=== PATIENT | male | born 1940 | race African-American/Black ===

== ENCOUNTER 2017-03-30 14:17 | Inpatient (IN) | payer OTHER, MEDICAID ==
[~2017-03-30] VITALS: Ht 182.9 cm; Wt 90.7 kg
[~2017-03-30 14:17] MED LIST: AMARYL4 MG ORAL; ASPIR 8181 MG ORAL; ATORVASTATIN CA40 MG ORAL; LISINOPRIL10 MG ORAL; METFORMIN HCL500 M1 ORAL
--- NOTE | 2017-03-30 14:49 | Emergency Room Report ---
History of Present Illness General Chief Complaint: Syncope Source: Patient, Medical Record, EMS Present Illness HPI 76-year-old male, coming from shelter, with pmhx of CAD with 1 stent, hypertension, chronic kidney disease, dementia p/w syncopal episode. Patient has dementia and does not recall any of the events, and is currently confused, history is obtained by EMS at bedside Syncopal episode occurred she was sitting down, slumped onto chair, staff came to him and he was not responsive for a few seconds and then woke up, patient was reportedly at his baseline which was still confused. There was no reported seizure-like activity. Patient did not fall. Currently patient is only stating "I do not know why I'm here". Denying any headache, neck pain, chest pain shortness of breath abdominal pain Allergies: Coded Allergies: PENICILLINS (Verified Allergy, Severe, RASH, HIVES, 01/18/13) Patient History Past Medical History: see triage record Past Surgical History: none Pertinent Family History: none Reviewed Nursing Documentation: PMH: Agreed, PSxH: Agreed Nursing Documentation-PMH Hx Hypertension: Yes Hx COPD: Yes - Hx Diabetes: Yes Hx Cancer: Yes - Lung Hx Gastrointestinal Problems: Yes Hx Neurological Problems: Yes Hx Cerebrovascular Accident: Yes - MINI STROKE Hx Transient Ischemic Attacks: Yes Hx Numbness: Yes - BILATERAL FEET; RIGHT HAND Hx Weakness: Yes Review of Systems All Other Systems: negative except mentioned in HPI Physical Exam Vital Signs Date Time Temp Pulse Resp B/P (MAP) Pulse Ox O2 Delivery O2 Flow Rate FiO2 03/30/17 14:08 52 16 130/70 98 Room Air Sp02 EP Interpretation: reviewed, normal General Appearance: well appearing, no apparent distress, alert, non-toxic, other - confused but cooperative Head: normocephalic, atraumatic Eyes: bilateral eye normal inspection, bilateral eye PERRL, bilateral eye EOMI ENT: normal ENT inspection, normal pharynx, normal voice, moist mucus membranes Neck: normal inspection, full range of motion, supple Respiratory: normal inspection, lungs clear, normal breath sounds, no respiratory distress, no retraction, no wheezing, speaking full sentences, chest symmetrical Cardiovascular #1: normal inspection, regular rate, rhythm, normal capillary refill Cardiovascular #2: 2+ radial (R), 2+ radial (L) Gastrointestinal: normal inspection, non tender, soft, non-distended, no guarding Genitourinary: no CVA tenderness Musculoskeletal: normal inspection, back normal, normal range of motion, non- tender Neurologic: alert, 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 Psychiatric: other - +dementia Skin: normal inspection, normal color, no rash, warm/dry, well hydrated, normal turgor Medical Decision Making Diagnostic Impression: Primary Impression: Syncope ER Course 76-year-old male with syncopal episode DDX: Vasovagal vs. orthostatic / hypovolemic/dehydration vs. cardiac arrhythmia (SVT , Afib) vs. cardiac (, ACS) vs. PE vs. metabolic (hypoglycemia, hypoxia), vs neuro (seizure, CVA, intracranial bleed) Plan: bgm, cbc, bmp, ekg, cxr WILL HOLD CT HEAD AT THIS TIME, THERE IS NO HISTORY OF HEAD TRAUMA, AND PATIENT IS OTHERWISE NEUROLOGICALLY INTACT WITH THE EXCEPTION OF HIS DEMENTIA AT THIS TIME ER course: Patient has remained stable during ED stay. No further syncopal episodes Disposition: Patient requires admission to observation telemetry. D/W hospitalist Dr Olmedo who has accepted pt for admission Please note that this Emergency Department Report was dictated using Health: [employer] technology software, occasionally this can lead to erroneous entry secondary to interpretation by the dictation equipment EKG Diagnostic Results EP Interpretation: Yes Rate: bradycardia Rhythm: NSR ST Segments: No acute changes, no WPW, Brugada, QT prolongation ASA given to patient: No Rhythm Strip EP Interpretation: Yes Rate: 57 Rhythm: NSR, no PVCs, no ectopy Chest X-ray CXR: Ordered: Yes 1 view Indication: Syncope EP interpretation: Yes Interpretation: No consolidation, no effusion, no PTX, no acute cardiopulmonary disease Impression: No acute disease Electronically signed by Antione Augustine MD Laboratory Tests Test 03/30/17 16:45 White Blood Count 9.3 K/UL (4.8-10.8) Red Blood Count 5.20 M/UL (4.70-6.10) Hemoglobin 13.0 G/DL (14.2-18.0) L Hematocrit 44.6 % (42.0-52.0) Mean Corpuscular Volume 86 FL (80-99) Mean Corpuscular Hemoglobin 24.9 PG (27.0-31.0) L Mean Corpuscular Hemoglobin Concent 29.1 G/DL (32.0-36.0) L Red Cell Distribution Width 13.2 % (11.6-14.8) Platelet Count 390 K/UL (150-450) Mean Platelet Volume 7.2 FL (6.5-10.1) Neutrophils (%) (Auto) 71.7 % (45.0-75.0) Lymphocytes (%) (Auto) 18.2 % (20.0-45.0) L Monocytes (%) (Auto) 7.3 % (1.0-10.0) Eosinophils (%) (Auto) 1.3 % (0.0-3.0) Basophils (%) (Auto) 1.5 % (0.0-2.0) Sodium Level 140 MMOL/L (136-145) Potassium Level 4.4 MMOL/L (3.5-5.1) Chloride Level 103 MMOL/L (98-107) Carbon Dioxide Level 27 MMOL/L (21-32) Anion Gap 10 mmol/L (5-15) Blood Urea Nitrogen 18 mg/dL (7-18) Creatinine 1.3 MG/DL (0.55-1.30) Estimate Glomerular Filtration Rate mL/min (>60) Glucose Level 185 MG/DL (74-106) H Calcium Level 9.6 MG/DL (8.5-10.1) Total Bilirubin 0.3 MG/DL (0.2-1.0) Aspartate Amino Transferase (AST) 18 U/L (15-37) Alanine Aminotransferase (ALT) 18 U/L (12-78) Alkaline Phosphatase 84 U/L (46-116) Troponin I 0.000 ng/mL (0.000-0.056) Pro-B-Type Natriuretic Peptide 243 pg/mL (0-125) H Total Protein 7.9 G/DL (6.4-8.2) Albumin 3.5 G/DL (3.4-5.0) Globulin 4.4 g/dL Albumin/Globulin Ratio 0.8 (1.0-2.7) L Last Vital Signs Date Time Temp Pulse Resp B/P (MAP) Pulse Ox O2 Delivery O2 Flow Rate FiO2 03/30/17 14:08 52 16 130/70 98 Room Air Disposition: PLACE IN OBSERVATION Condition: Serious Antione Augustine M.D. Mar 30, 2017 14:49
[2017-03-30 17:00] LABS: BASOPHILS % (AUTO) 1.5 % (0.0-2.0); EOSINOPHILS % (AUTO) 1.3 % (0.0-3.0); LYMPHOCYTES % (AUTO) 18.2 % (20.0-45.0); MEAN CORPUSCULAR HEMOGLOBIN 24.9 PG (27.0-31.0); MEAN CORPUSCULAR HGB CONC 29.1 G/DL (32.0-36.0); MEAN CORPUSCULAR VOLUME 86 FL (80-99); MEAN PLATELET VOLUME 7.2 FL (6.5-10.1); MONOCYTES % (AUTO) 7.3 % (1.0-10.0); NEUTROPHILS % (AUTO) 71.7 % (45.0-75.0); PLATELET COUNT 390 K/UL (150-450); RED CELL DISTRIBUTION WIDTH 13.2 % (11.6-14.8); WHITE BLOOD COUNT 9.3 K/UL (4.8-10.8)
[2017-03-30 17:10] LABS: ANION GAP 10 mmol/L (5-15); CALCIUM 9.6 MG/DL (8.5-10.1); CARBON DIOXIDE 27 MMOL/L (21-32); CHLORIDE 103 MMOL/L (98-107); CREATININE 1.3 MG/DL (0.55-1.30); POTASSIUM 4.4 MMOL/L (3.5-5.1); SODIUM 140 MMOL/L (136-145)
[2017-03-30 17:15] VITALS: BP 138/96
[2017-03-30 17:44] LABS: ALANINE AMINOTRANSFERASE 18 U/L (12-78); ALBUMIN/GLOBULIN RATIO 0.8 (1.0-2.7); ASPARTATE AMINO TRANSFERASE 18 U/L (15-37); TOTAL PROTEIN 7.9 G/DL (6.4-8.2)
[2017-03-30 19:00] VITALS: BP 127/63
[2017-03-30] MEDS ORDERED: ACETAMINOPHEN325 M1 ORAL (19:05)
[2017-03-30] MEDS ORDERED: MULTIVITAMINS1 EAC8 ORAL (19:05)
[2017-03-30] MEDS ORDERED: NAMENDA5 MG ORAL (19:05)
[2017-03-30] MEDS ORDERED: SPIRIVA18 MCG INH (19:05)
[2017-03-30] MEDS ORDERED: JANUVIA100 MG ORAL (19:05)
[2017-03-30] MEDS ORDERED: LISINOPRIL5 MG ORAL ×2 (19:05→19:11)
[2017-03-30] MEDS ORDERED: COLACE100 MG ORAL (19:05)
[2017-03-30] MEDS ORDERED: PLAVIX75 MG ORAL (19:05)
[2017-03-30] MEDS ORDERED: METFORMIN HCL500 M1 ORAL (19:08)
[2017-03-30] MEDS ORDERED: ARICEPT5 MG ORAL (19:08)
[2017-03-30] MEDS ORDERED: CARVEDILOL6.25 MG ORAL (19:08)
[2017-03-30] MEDS ORDERED: PROTONIX40 MG ORAL (19:08)
[2017-03-30] MEDS ORDERED: LIDOCAINE700 M1 TP (19:10)
[2017-03-30] MEDS ORDERED: JANUVIA50 MG ORAL (19:11)
[2017-03-30] MEDS ORDERED: NOVOLOG100 UNIT/3 SUBQ (19:12)
[2017-03-30 22:00] VITALS: BP 112/69
[2017-03-30 23:40] VITALS: BP 104/69
[2017-03-31] VITALS (7 sets, daily range): BP systolic 98–147; BP diastolic 53–82
[2017-03-31 04:33] LABS: ALANINE AMINOTRANSFERASE 18 U/L (12-78); ALBUMIN/GLOBULIN RATIO 0.7 (1.0-2.7); ANION GAP 7 mmol/L (5-15); ASPARTATE AMINO TRANSFERASE 21 U/L (15-37); CALCIUM 8.6 MG/DL (8.5-10.1); CARBON DIOXIDE 28 MMOL/L (21-32); CHLORIDE 105 MMOL/L (98-107); CREATININE 1.3 MG/DL (0.55-1.30); POTASSIUM 4.9 MMOL/L (3.5-5.1); SODIUM 140 MMOL/L (136-145); THYROID STIMULATING HORMONE 0.781 uiU/mL (0.358-3.740); TOTAL PROTEIN 6.6 G/DL (6.4-8.2)
[2017-03-31 06:35] LABS: BASOPHILS % (AUTO) 1.5 % (0.0-2.0); EOSINOPHILS % (AUTO) 1.9 % (0.0-3.0); LYMPHOCYTES % (AUTO) 31.4 % (20.0-45.0); MEAN CORPUSCULAR HEMOGLOBIN 26.4 PG (27.0-31.0); MEAN CORPUSCULAR HGB CONC 31.2 G/DL (32.0-36.0); MEAN CORPUSCULAR VOLUME 85 FL (80-99); MEAN PLATELET VOLUME 7.5 FL (6.5-10.1); MONOCYTES % (AUTO) 12.9 % (1.0-10.0); NEUTROPHILS % (AUTO) 52.3 % (45.0-75.0); PLATELET COUNT 339 K/UL (150-450); RED CELL DISTRIBUTION WIDTH 13.7 % (11.6-14.8); WHITE BLOOD COUNT 6.2 K/UL (4.8-10.8)
[2017-03-31] MEDS: sitaGLIPtin 50mg tab ORAL SCH (06:51)
[2017-03-31] MEDS: metFORMIN 500mg tab ORAL SCH ×2 (10:32→17:58)
[2017-03-31] MEDS: Memantine 10mg tab ORAL SCH (10:32)
[2017-03-31] MEDS: Aspirin Baby 81mg ORAL SCH (10:33)
[2017-03-31] MEDS: Lisinopril 10mg tab ORAL SCH ×2 (10:33→18:02)
[2017-03-31] MEDS: Carvedilol 6.25mg Tab ORAL SCH ×2 (10:33→21:00)
[2017-03-31] MEDS: Docusate 100mg cap ORAL SCH ×2 (10:37→17:59)
[2017-03-31] MEDS: NovoLOG Insulin Flexpen SUBQ SCH ×3 (11:38→20:30)
--- NOTE | 2017-03-31 12:54 | History & Physical ---
History and Physical History & Physicial DIct AMYJENNIFERJEAN-PIERRE Mar 31, 2017 12:54
--- NOTE | 2017-03-31 12:59 | Diagnostic Imaging Report ---
Indication: Dyspnea Comparison: 12/04/2012 A single view chest radiograph was obtained. Findings: Lungs are essentially clear. There is tenting of the right hemidiaphragm which shadow may be related to previous surgery. Heart size is normal. The bones are slightly osteopenic. IMPRESSION: No acute disease
--- NOTE | 2017-03-31 14:32 | Diagnostic Imaging Report ---
Indication: Syncope Technique: Contiguous 5 mm thick transaxial imaging of the head obtained in a Siemens Sensation [address] scanner. Soft tissue and bone windows generated. Automatic Exposure Control was utilized. Total Dose length Product (DLP): 1362.[address] Dose Index Volume (CTDIvol): 70.38 mGy Comparison: 12/04/2012 Findings: Encephalomalacia in the right frontal lobe noted consistent with old CVA. Generalized atrophy of the brain is present. Periventricular low attenuation noted. There is no hemorrhage or mass effect identified. IMPRESSION: No acute intracranial bleed, mass effect or edema Old right frontal infarct The CT scanner at [facility] is accredited by the [employer] and the scans are performed using dose optimization techniques as appropriate to a performed exam including Automatic Exposure control.
--- NOTE | 2017-03-31 15:30 | History and Physical Report ---
DATE OF ADMISSION: 03/30/2017 HISTORY OF PRESENT ILLNESS: The patient is a 76-year-old male, who [facility]. The patient has dementia and can't recall any details as to what happened. According to the emergency room notes and paramedics report, he slumped down on a chair and was unresponsive for a few seconds. Presently, he is alert, but has very poor memory. PAST MEDICAL HISTORY: Chronic kidney disease, hypertension, coronary artery disease with stent placement, dementia, possible stroke, neuropathy, COPD, diabetes and lung cancer. MEDICATIONS: Reviewed. ALLERGIES: Penicillin. REVIEW OF SYSTEMS: Otherwise, unremarkable. The patient feeds himself. He is not able to ambulate or dress himself. PHYSICAL EXAMINATION: VITAL SIGNS: Stable. GENERAL: He appears chronically ill and thin. HEENT: Head is normocephalic. NECK: No jugular vein distention. The carotids are 2+. CHEST: Clear with decreased air entry. CARDIAC: Rhythm is regular without murmur or gallop. ABDOMEN: Soft and nontender. Liver and spleen not enlarged. EXTREMITIES: No clubbing, cyanosis, or edema. He is able to move all extremities. LABORATORY AND DIAGNOSTIC DATA: Laboratory studies and imaging are reviewed. IMPRESSION: 1. Syncope. 2. Dementia. 3. Hypertension, controlled. 4. Coronary artery disease. 5. Diabetes. PLAN: We will get a CT brain and Neurology and Cardiology consultations. Dontae Olmedo M.D. DR: SALVADOR JOB#: [id number] CC: Dontae Olmedo M.D.; Fax#: [phone]
[2017-03-31] MEDS ORDERED: Atorvastatin 20mg tab ORAL SCH (21:00)
[2017-03-31] MEDS ORDERED: Donepezil 5mg Tab ORAL SCH (21:00)
--- NOTE | 2017-03-31 22:00 | Consultation ---
DATE OF CONSULTATION: 03/31/2017 NEUROLOGICAL CONSULTATION CONSULTING PHYSICIAN: Nito Wells M.D. REQUESTING PHYSICIAN: Dontae Olmedo M.D. HISTORY OF PRESENT ILLNESS: This 76-year-old man is seen in neurological consultation to evaluate the transient loss of consciousness. The patient has no recollection of event. This was obtained from medical records. Note that the patient is a resident of nursing facility and has pre-existent dementia. He had an episode of unresponsiveness, which occurred while he was sitting down. He was described as slumped into the chair and being unresponsive for few seconds. There was no associated symptomatology noted. There was no evidence of head, back, or neck injury. The patient responded that he was not sure why he is in the hospital. He was brought to emergency room with his vital signs being stable. He was afebrile. His lab work included unremarkable CBC study. Chemistry panel with blood sugar 195 and BNP of 243, otherwise normal study. His imaging studies included CAT scan of the brain, which revealed encephalomalacia in right frontal lobe consistent with old stroke, generalized atrophy, periventricular low attenuation noted. There was a chest x-ray. This revealed no acute disease. Since admission till present, there was no further paroxysmal event noted. His vital signs remained stable. The patient known to have a long medical history. This includes chronic renal insufficiency, hypertension, coronary artery disease, status post angioplasty, history of old stroke, COPD, diabetes type 2, and history of lung CA. ALLERGIES: Penicillin. MEDICATIONS: His treatment list prior to admission included aspirin, Tylenol, carvedilol, Plavix, Colace, Aricept 5 mg, insulin, lidocaine, lisinopril, Namenda 5 mg, metformin, pantoprazole, Januvia, and Spiriva. FAMILY HISTORY: Noncontributory. SOCIAL HISTORY: Resident of a nursing facility. REVIEW OF SYMPTOMS: The patient indicated that he has mild headache, but no dizziness. No chest pain. No palpitations. No respiratory problems. He indicated that he has had no trouble walking. He has no previous strokes. He has never had loss of consciousness or seizures. PHYSICAL EXAMINATION: GENERAL: A well-developed, well-nourished man, not in acute distress, lying comfortably in bed. VITAL SIGNS: Blood pressure 137/80 and respirations 14. HEENT: Head, normocephalic. There is no evidence of trauma. Eyes, ears, and throat are clear. NECK: Rigid in all directions. MUSCULOSKELETAL EXAMINATION: Unremarkable with no deformities. Peripheral pulses 1+ and symmetric. MENTAL STATUS: The patient is alert to his name, but unable to give his age. He gave address obviously of old residence. He was able to follow simple commands, smiling, but appears quite confused, not sure where he is now. CRANIAL NERVE II: Pupils both responding to light and accommodation. Extraocular movements intact. No nystagmus. CRANIAL NERVE V: Normal corneal responses. CRANIAL NERVE VII: No facial asymmetry. CRANIAL NERVE VIII: Grossly normal hearing. CRANIAL NERVES IX THROUGH XII: Within normal limits. MOTOR EXAMINATION: Normal muscle tone. Strength 5/5 in all extremities. No involuntary movement. Deep tendon reflexes 1+ and symmetric with downgoing toes on both sides. SENSORY EXAMINATION: Normal to pinprick and light touch. Gait not tested, but reported he is able to ambulate without assistance. IMPRESSION: 1. History of transient unresponsiveness, most likely representing a syncopal episode. Doubt presence of seizure activity. 2. Vascular dementia. 3. 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 4. Hypertension. 5. Diabetes type 2. 6. Coronary artery disease. 7. History of lung cancer. RECOMMENDATIONS: Check orthostatic blood pressure. Continue with IV hydration. Recheck carotid duplex. 2D echocardiogram. The patient will continue with Plavix and statins. We will observe for any paroxysmal events. Nito Wells M.D. DR: JOSÉ MIGUEL JOB#: [id number] CC:
[2017-04-01] VITALS: BP 138/79
[2017-04-01 04:00] VITALS: BP 153/91
[2017-04-01] MEDS: NovoLOG Insulin Flexpen SUBQ SCH ×2 (06:30→11:39)
[2017-04-01] MEDS: sitaGLIPtin 50mg tab ORAL SCH (06:30)
[2017-04-01 08:00] VITALS: BP 144/90
[2017-04-01] MEDS: Memantine 10mg tab ORAL SCH (08:07)
[2017-04-01] MEDS: metFORMIN 500mg tab ORAL SCH (08:07)
[2017-04-01] MEDS: Aspirin Baby 81mg ORAL SCH (08:08)
[2017-04-01] MEDS: Docusate 100mg cap ORAL SCH (08:08)
[2017-04-01 08:14] VITALS: BP 164/86
[2017-04-01] MEDS: Lisinopril 10mg tab ORAL SCH (08:17)
[2017-04-01] MEDS: Carvedilol 6.25mg Tab ORAL SCH (08:27)
--- NOTE | 2017-04-01 09:35 | Cardiology Progress Note ---
Assessment/Plan Assessment/Plan repeat ekg orthstatic vitals final echo if neg no other cardiac [facility]an indicated [facility] [id number] Objective Last 24 Hour Vital Signs Date Time Temp Pulse Resp B/P (MAP) Pulse Ox O2 Delivery O2 Flow Rate FiO2 04/01/17 08:27 68 144/90 04/01/17 08:17 164/86 04/01/17 08:14 96.3 65 18 164/86 98 Room Air 04/01/17 08:00 144/90 04/01/17 04:00 62 04/01/17 04:00 Room Air 04/01/17 04:00 97.2 78 20 153/91 98 Room Air 04/01/17 00:00 97.7 65 20 138/79 97 04/01/17 00:00 65 04/01/17 00:00 Room Air 03/31/17 21:00 60 129/79 03/31/17 20:30 97.3 60 20 134/82 100 Room Air 03/31/17 20:00 Room Air 03/31/17 20:00 70 03/31/17 20:00 60 20 121/79 99 Room Air 03/31/17 18:02 133/74 03/31/17 16:00 65 03/31/17 12:00 59 03/31/17 10:33 130/53 03/31/17 10:33 66 130/53 Laboratory Tests Test 03/31/17 18:48 Troponin I 0.004 ng/mL (0.000-0.056) KVNG AHUJA Apr 01, 2017 09:35
[2017-04-01] MEDS ORDERED: LISINOPRIL10 MG ORAL (09:45)
[2017-04-01] MEDS ORDERED: Lisinopril 10mg tab ORAL ONE (10:15)
[2017-04-01 12:00] VITALS: BP 147/93
--- NOTE | 2017-04-01 12:03 | Physician Query ---
PLEASE COMPLETE THE DOCUMENT BEFORE SIGNING Dear JEAN-PIERRE Correa Date: 04/01/17 [employer]/CDS Name: Nasrin Wilson [employer] / CDS Phone # [phone] Exercise your independent professional judgment when responding to query. Question asked do not imply a particular answer is desired/expected Clinical Documentation States: "Syncope" documented in H & P 03/31/17 Clinical Findings Show: Initial VS: HR - 52, RR - 16, BP - 130/70, Pulse/Ox - 98 on room air EKG Diagnostic Results: Rate 57, bradicardia, Rhytm NSR Chest X-Ray: No acute disease CT Head no Contrast: No acute intracranial bleed, mass effect or edema. Old right frontal infarct. NEUROLOGICAL CONSULTATION: History of transient unresponsiveness, most likely representing a syncopal episode. Doubt presence of seizure activity. Please specify the cause: [] Autonomic Imbalance [x] Autonomic Dysfunction [] Orthostatic Hypotension [] Psychogenic [] Shock [] Dehydration [] Dialysis Disequilibrium Syndrome [] Heat [] Other: [] Unable to determine Condition Present on Admission: [x] Yes [] No [ ]Clinically Undeterminable Please also document in your Progress Notes and/or Discharge Summary and indicate if the condition was present on admission. Dr. JEAN-PIERRE FERRELL MD Date/Time [facility]
--- NOTE | 2017-04-01 18:06 | Discharge Summary ---
Discharge Summary Hospital Course Date of Admission Mar 30, 2017 at 18:16 Date of Discharge Apr 01, 2017 at 15:21 Admitting Diagnosis syncope HPI Sam Ferrara is a 76 year old male who was admitted on Mar 30, 2017 at 18:16 for Syncope Hospital Course [id number] Discharge Discharge Disposition Patient was discharged to SNF/Subacute Facility(03) Discharge Diagnoses: Mary Romero NP Apr 01, 2017 18:06
--- NOTE | 2017-04-01 21:02 | Consultation ---
DATE OF CONSULTATION: 04/01/2017 CARDIOLOGY CONSULTATION CONSULTING PHYSICIAN: Santi Bravo M.D. REFERRING PHYSICIAN: Dontae Olmedo M.D. REASON FOR REFERRAL: Syncope. HISTORY OF PRESENT ILLNESS: This is an elderly gentleman, who is really not sure why he is here in the hospital. Therefore, information is obtained from the review of the patient's chart as well as [facility] records. He is 76 years old. He is apparently in the convalescent facility, history he is not sure of because of his dementia. Apparently, he was brought to the emergency room at [facility], but he did not recall any events and was confused. History was obtained with the EMS at bedside through the emergency room physician's notation, which I reviewed. While he was sitting down, he slumped onto a chair, staff came in, though he was not responsive for a few seconds, then he woke up. The patient was reportedly at his baseline, but was still confused. No reported seizure activity. There are no falls. He denies any chest pain. No shortness of breath. No PND. No orthopnea, although he uses two pillows for comfort. No dizziness or lightheadedness on standing. No heart pounding or palpitations. The [facility] nurse that saw the patient at the convalescent facility reported that the patient had a seizure-like episode while sitting and apparently he started shaking, drooling, and lost consciousness. PAST MEDICAL HISTORY: Extensive according to the [facility] records. He has a history of diabetes mellitus, aortic calcification, peripheral arterial disease and systemic hypertension. He suffered a septic shock. He has had ST-elevation myocardial infarction, acute renal failure with tubular necrosis superimposed on stage 3 chronic kidney disease, acute upper GI bleed, acute encephalopathy, Alzheimer's, colitis, anemia, peripheral vascular disease and urinary tract infection. His past medical history also includes PCI to proximal left anterior descending with drug-eluting stents on 11/08/2016 with ejection fraction apparently at 55%. His peak troponin at that time was 60. ALLERGIES: He is allergic to penicillin. SOCIAL HISTORY: He indicates he smokes, but less than half a pack a day. He does not drink. Does not use any drugs. He used to work as a miguel for hospital. REVIEW OF SYSTEMS: GASTROINTESTINAL: He denies any nausea, vomiting, diarrhea, or constipation. GENITOURINARY: Denies. PULMONARY: Denies. CONSTITUTIONAL: Denies. NEUROLOGICAL: He indicates numbness and tingling sensations in the groins bilaterally. PHYSICAL EXAMINATION: GENERAL: Examination shows him to be an elderly gentleman, in no respiratory distress. HEENT: Unremarkable. NECK: Supple. No jugular venous distention. LUNGS: Clear to auscultation and percussion. CARDIAC EXAMINATION: S1 is normal. S2 is normal. Regular rate and rhythm. A holosystolic regurgitant murmur is noted. ABDOMEN: Soft and nontender. Positive bowel sounds. EXTREMITIES: There is no clubbing, cyanosis, nor is there any edema. NEUROLOGICAL: He is awake, alert, and responsive, but disoriented, although he knows that he is in a hospital. LABORATORY AND DIAGNOSTIC DATA: His previous workup from [facility] in October 2016, he had an echocardiogram that showed ejection fraction of 55%, diastolic relaxation abnormalities. Hypokinesis of the entire inferolateral wall and basal to mid septal wall and basal anterior septal wall at that time was documented. His labs during this hospitalization here at [place] indicate a white count of 6.2 with hemoglobin 11.9, and platelet count of 339. Sodium 140, potassium 4.9, chloride 105, bicarbonate 28, BUN 21, creatinine 1.3 and glucose of 198. Three sets of cardiac enzymes all are negative. His ProBNP is only 243. His TSH is 0.781. Total glucose 185 and 198. There was no urinalysis sent on him. His telemetry data shows basically sinus rhythm. His echocardiogram performed recently here is technically difficult. EKG shows normal sinus bradycardia with no ST or T-wave abnormalities documented on his EKG. ASSESSMENT: 1. Acute loss of consciousness. 2. Coronary artery disease, status post percutaneous coronary intervention, left anterior descending artery drug-eluting stents in October 2016. 3. History of chronic kidney disease. 4. Dementia. 5. Diabetes mellitus. 6. History of urinary retention. 7. Elevated liver function tests. PLAN: Dr. Olmedo, this patient was seen in cardiac consultation. The data that is obtained so far is not completely clear. The ECP nurse was told that there was some seizure-like activity, but not according to the EMS. I suspect that should be part of the evaluation. He probably should have urinalysis in light of the fact that he has had urinary retention and UTI before to make sure there is no evidence of urinary tract infection that causes some of his symptoms. Consider neurological evaluation in light of what was described by the nurse to the ECP nurse at the convalescent facility of a possible seizure-like activity. His head CT was reportedly negative. He did have a chest x-ray in the emergency room as well that showed no acute disease. We will have a set of orthostatic vitals done. His telemetry data is negative. He has had an echocardiogram, but there is no report yet here. I will try to see if I can locate to review that information as well. From a cardiac point of view, I will repeat his electrocardiogram as well and his further recommendations will be provided as becomes necessary, although I suspect aside from what was mentioned above, that his cardiac workup would have been completed if orthostatic vitals and repeat EKG are negative. Santi Bravo M.D. DR: ILDA JOB#: [id number] CC:
--- NOTE | 2017-04-01 23:21 | Consultation ---
History of Present Illness General Date patient seen: Mar 30, 2017 Chief Complaint: Syncope Present Illness HPI 76-year-old male, who [facility] from [facility] due [facility]. The patient has dementia and can't recall any details as to what happened. Allergies: Coded Allergies: PENICILLINS (Verified Allergy, Severe, RASH, HIVES, 01/18/13) Medication History Scheduled Aspirin* (Aspir 81*), 81 MG ORAL DAILY, (Reported) Atorvastatin Calcium* (Atorvastatin Calcium*), 40 MG ORAL BEDTIME, (Reported) Carvedilol* (Carvedilol*), 6.25 MG ORAL BID, (Reported) Clopidogrel Bisulfate* (Plavix*), 75 MG ORAL DAILY, (Reported) Docusate Sodium* (Colace*), 100 MG ORAL TWICE A DAY, (Reported) Donepezil Hcl* (Aricept*), 5 MG ORAL DAILY, (Reported) Insulin Aspart* (Novolog*), 0 SUBQ QID, (Reported) Lisinopril* (Lisinopril*), 20 MG ORAL QD Memantine Hcl* (Namenda*), 5 MG ORAL DAILY, (Reported) Metformin Hcl* (Metformin Hcl*), 500 MG ORAL TWICE A DAY, (Reported) Multivitamin With Minerals (Multivitamins With Minerals*), 1 TAB ORAL DAILY, ( Reported) Pantoprazole* (Protonix*), 40 MG ORAL BID, (Reported) Sitagliptin (Januvia), 50 MG ORAL DAILY, (Reported) Tiotropium Hamill* (Spiriva*), 1 PUFF INH DAILY, (Reported) Scheduled PRN Acetaminophen* (Acetaminophen 325MG Tablet*), 325 MG ORAL Q6H PRN for For Pain, (Reported) Lidocaine (Lidocaine), 700 MG TP DAILY PRN for For Pain, (Reported) Discontinued Medications Lisinopril (Lisinopril*), 5 MG ORAL BID, (Reported) Discontinued Reason: Medication dose changed Patient History Healthcare decision maker Resuscitation status Advanced Directive on File Physical Exam Last 24 Hour Vital Signs Date Time Temp Pulse Resp B/P (MAP) Pulse Ox O2 Delivery O2 Flow Rate FiO2 04/01/17 12:00 96.6 66 18 147/93 100 Room Air 04/01/17 12:00 67 04/01/17 11:38 145/87 04/01/17 11:16 81 16 96 Room Air 21 12/19/17 11:16 80 16 96 Room Air 21 04/01/17 10:45 82 74 66 04/01/17 08:27 68 144/90 04/01/17 08:17 164/86 04/01/17 08:14 96.3 65 18 164/86 98 Room Air 04/01/17 08:00 144/90 04/01/17 08:00 75 04/01/17 04:00 62 04/01/17 04:00 Room Air 04/01/17 04:00 97.2 78 20 153/91 98 Room Air 04/01/17 00:00 97.7 65 20 138/79 97 04/01/17 00:00 65 04/01/17 00:00 Room Air Intake and Output 04/01/17 04/02/17 19:00 07:00 Intake Total 480 ml Balance 480 ml Intake Oral 480 ml # Voids 2 Height (Feet): 6 Height (Inches): 0.00 Weight (Pounds): 200 Zaria Edwards M.D. Apr 01, 2017 23:21
--- NOTE | 2017-04-02 03:32 | Discharge Summary 2 SIG ---
DATE OF ADMISSION: 03/30/2017 DATE OF DISCHARGE: 04/01/2017 CONSULTANTS: 1. Nito Wells M.D. 2. Santi Bravo M.D. BRIEF HOSPITAL COURSE: The patient is a 76-year-old male, who came from [facility] due to syncope. The patient has dementia and cannot recall any details as to what happened. From emergency notes and paramedics report, he slumped down on the chair and was unresponsive for few seconds. On arrival to ED, EKG done was in normal sinus rhythm. Chest x-ray showed no acute disease with no consolidation, no effusion, and no pneumothorax. He was admitted to telemetry for evaluation of syncope. Head CT showed no acute intracranial bleed, mass effect, or edema with old right frontal infarct. He underwent neurologic and cardiac evaluation. He was seen by Dr. Wells. He was continued on IV hydration and was given Plavix and Lipitor. He had carotid duplex scan that showed minimal stenosis on external and internal carotids. Vertebral arteries were patent without any evidence of stenosis or steal. Orthostatics were checked. There has been no other syncopal episodes. Troponins were negative. He had stable vital signs and eventually discharged to [facility]. FINAL DIAGNOSES: 1. Syncope with autonomic dysfunction, present on admission. 2. Dementia. 3. Hypertension. 4. Coronary artery disease. 5. Diabetes mellitus. 6. 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 DISPOSITION: The patient was discharged to SNF. DISCHARGE MEDICATIONS: Refer to medication list. Dontae Olmedo M.D. I have been assigned to dictate discharge summary on this account and I was not involved in the patient's management. Mary Romero N.P. DR: CARYN JOB#: [id number] CC: GIOVANA
[2017-04-02] MEDS ORDERED: Lisinopril 10mg tab ORAL SCH (09:00)
--- NOTE | 2017-04-02 17:00 | Cardiology Report ---
APPROVED REPORT EKG Measurement Heart [id number] AL [id number] Normal sinus rhythm Normal ECG
--- NOTE | 2017-04-05 00:24 | Cardiology Report ---
APPROVED REPORT EXAM: Two-dimensional and M-mode echocardiogram with Doppler and color Doppler. INDICATION Syncope M-Mode DIMENSIONS IVSd1.1 (0.7-1.1cm) LVDd3.2 (3.5-5.6cm) PWd1.4 (0.7-1.1cm) IVSs1.4 cm LVDs2.2 (2.5-4.0cm) PWs1.3 cm Technically difficult study due to poor acoustical windows. Left ventricular ejection fraction estimated to be 60%. No evidence of left ventricular hypertrophy. No evidence of pericardial effusion All other cardiac chamber size are within normal . Focal aortic valve sclerosis with adequate cusp excursion. Thickened mitral valve leaflets with normal excursion. Mitral annulus and aortic root calcification. Pulmonic valve are not well visualized . Normal tricuspid valve structure. IVC at 1.7 cm with physiologic collapse. A color flow and spectral Doppler study was performed and revealed: No aortic regurgitation. Trace mitral regurgitation. Normal left ventricular function . Trace tricuspid regurgitation. Tricuspid systolic velocities suggests peak right ventricular systolic pressure of 16 mmHg No Pulmonic regurgitation present.
--- NOTE | 2017-04-05 00:30 | Cardiology Report ---
APPROVED REPORT EKG Measurement Heart [id number] CO [id number] Sinus bradycardia Otherwise normal ECG
--- NOTE | 2017-04-10 00:06 | Diagnostic Imaging Report ---
APPROVED REPORT CPT Code: 49210 Vascular Symptoms Syncope Doppler Spectral Velocity Analysis RightLeft RIGHT SIDE: CCA/BULB - Imaging reveals irregular, minimal plaque in the common carotid artery, and irregular mild to moderate plaque in the carotid bulb. Imaging reveals irregular plaque in the extracranial external and internal carotid arteries. The Doppler spectral flow analysis indicates the degree of stenosis is minimal (10%) in the external carotid artery, and minimal (10%) in the internal carotid artery. VERTEBRAL- The vertebral artery is patent, without evidence of stenosis or steal. LEFT SIDE: CCA/BULB - Imaging reveals irregular, minimal plaque in the common carotid artery, and irregular mild to moderate plaque in the carotid bulb. Imaging reveals irregular plaque in the extracranial external and internal carotid arteries. The Doppler spectral flow analysis indicates the degree of stenosis is minimal (10%) in the external carotid artery, and minimal (10%) in the internal carotid artery. VERTEBRAL- The vertebral artery is patent, without evidence of stenosis or steal.
== END 2017-04-01 15:21 | DRG 882 ==
LOC: EDBD 14:17 → EMR 14:44 → 2E 18:16 → OBSVTOIN 18:16 → EDBEDREQ 18:36 → ENRESERV 03-31 07:30 → 2E 04-01 13:50
DX: F45.8 Other somatoform disorders (principal); E11.22 Type 2 diabetes mellitus with diabetic chronic kidney disease; F01.50 Vascular dementia, unspecified severity, without behavioral disturbance, psychotic disturbance, mood disturbance, and anxiety; E11.9 Type 2 diabetes mellitus without complications; R55 Syncope and collapse; I25.10 Atherosclerotic heart disease of native coronary artery without angina pectoris; Z85.118 Personal history of other malignant neoplasm of bronchus and lung; I12.9 Hypertensive chronic kidney disease with stage 1 through stage 4 chronic kidney disease, or unspecified chronic kidney disease; N18.9 Chronic kidney disease, unspecified; Z95.5 Presence of coronary angioplasty implant and graft; J44.9 Chronic obstructive pulmonary disease, unspecified; Z86.73 Personal history of transient ischemic attack (TIA), and cerebral infarction without residual deficits; I25.2 Old myocardial infarction; I73.9 Peripheral vascular disease, unspecified; Z88.0 Allergy status to penicillin
CPT/HCPCS: 36415; 70450; 71010; 80053; 82962; 83880; 84443; 84484; 85025; 87081; 93005; 93306; 93880; 94640; 99285; J1815

== ENCOUNTER 2018-01-16 01:26 | Emergency (ER) | payer OTHER, MEDICAID ==
[~2018-01-16] VITALS: Ht 205.7 cm; Wt 72.6 kg
[~2018-01-16 01:26] MED LIST changes: +ACETAMINOPHEN325 M1 ORAL; +ARICEPT5 MG ORAL; +CARVEDILOL6.25 MG ORAL; +COLACE100 MG ORAL; +JANUVIA100 MG ORAL; +JANUVIA50 MG ORAL; +LIDOCAINE700 M1 TP; +LISINOPRIL5 MG ORAL; +MULTIVITAMINS1 EAC8 ORAL; +NAMENDA5 MG ORAL; +NOVOLOG100 UNIT/3 SUBQ; +PLAVIX75 MG ORAL; +PROTONIX40 MG ORAL; +SPIRIVA18 MCG INH
[2018-01-16 01:40] VITALS: BP 113/82
[2018-01-16] MEDS ORDERED: Albuterol ud Inhalation HHN ONE (01:45)
--- NOTE | 2018-01-16 02:06 | Emergency Room Report ---
History of Present Illness General Chief Complaint: Dyspnea/Respdistress Source: Patient, Medical Record, EMS Present Illness HPI This is a 77-year-old male with history dementia, high blood pressure, diabetes , CAD and COPD. He presents with chief complaint of hypoglycemia. Nursing staff noted him to be unresponsive and diaphoretic. Blood sugar was 26 per EMS. They gave him glucagon. Afterward and noticed that his oxidation was low. Patient complaining of being cold. Otherwise history is limited because of his dementia. He also noted to be coughing. Unknown duration area and he does have a history of COPD. Allergies: Coded Allergies: PENICILLINS (Verified Allergy, Severe, RASH, HIVES, 01/18/13) Patient History Past Medical History: see triage record, old chart reviewed, DM, HTN, CAD, COPD , dementia Past Surgical History: other Pertinent Family History: none Social History: Denies: smoking Immunizations: other Reviewed Nursing Documentation: PMH: Agreed; PSxH: Agreed Nursing Documentation-PMH Past Medical History: No History, Except For Hx Hypertension: Yes Hx COPD: Yes - 1970'S Hx Diabetes: Yes Hx Cancer: Yes - Lung Hx Gastrointestinal Problems: Yes Hx Neurological Problems: Yes Hx Cerebrovascular Accident: Yes - MINI STROKE Hx Transient Ischemic Attacks: Yes Hx Numbness: Yes - BILATERAL FEET; RIGHT HAND Hx Weakness: Yes Review of Systems Constitutional: Reports: chills Eye: Denies: eye pain, blurred vision ENT: Denies: ear pain, nose congestion, throat swelling Respiratory: Reports: cough; Denies: shortness of breath Cardiovascular: Denies: chest pain, palpitations Gastrointestinal: Denies: abdominal pain, diarrhea, nausea, vomiting Musculoskeletal: Denies: back pain, joint pain Skin: Denies: rash Neurological: Denies: headache, numbness Endocrine: Denies: increased thirst, increased urine Hematologic/Lymphatic: Denies: easy bruising All Other Systems: negative except mentioned in HPI Physical Exam Vital Signs Date Time Temp Pulse Resp B/P (MAP) Pulse Ox O2 Delivery O2 Flow Rate FiO2 01/16/18 01:27 98.7 72 18 115/80 94 Non-Rebreather 15.0 98.8 01/16/18 01:54 100 vitals with hypoxia Sp02 EP Interpretation: reviewed, normal General Appearance: no apparent distress, alert, thin, Chronically Ill Head: normocephalic, atraumatic Eyes: bilateral eye PERRL, bilateral eye EOMI ENT: hearing grossly normal, normal pharynx Neck: full range of motion, supple, no meningismus Respiratory: chest non-tender, rhonchi Cardiovascular #1: regular rate, rhythm, no murmur Gastrointestinal: normal bowel sounds, non tender, no mass, no organomegaly, no bruit, non-distended Musculoskeletal: back normal, normal range of motion Neurologic: alert, grossly normal Psychiatric: mood/affect normal Skin: warm/dry Medical Decision Making Diagnostic Impression: Primary Impression: Hypoglycemia Additional Impressions: COPD exacerbation UTI (urinary tract infection) Qualified Codes: N30.00 - Acute cystitis without hematuria FREDDIE (acute kidney injury) ER Course Patient presents with hypoglycemia secondary to insulin. Glucose stable here. I fed him here. He does show evidence of dehydration. IV fluids given and Rocephin given for UTI. Chest x-ray is normal. Oxygenation is normal here. I suspect the low approximation was probably secondary to him being very cold from hypoglycemia and wasn't tracking. Patient is back to baseline. We'll discharge home. EKG Diagnostic Results Rate: normal Rhythm: NSR ST Segments: other - NSST changes Rhythm Strip Diag. Results Rhythm Strip Time: 02:06 EP Interpretation: yes Rate: 72 Rhythm: NSR, no PVC's, no ectopy Chest X-Ray Diagnostic Results Chest X-Ray Diagnostic Results : Chest X-Ray Ordered: Yes # of Views/Limited/Complete: 1 View Indication: Shortness of Breath EP Interpretation: Yes Interpretation: no consolidation, no effusion, no pneumothorax, no acute cardiopulmonary disease Impression: No acute disease - copd Electronically Signed by: Brandon Randhawa MD Last Vital Signs Date Time Temp Pulse Resp B/P (MAP) Pulse Ox O2 Delivery O2 Flow Rate FiO2 01/16/18 02:02 71 23 98 Nasal Cannula 2.0 28 01/16/18 01:27 98.7 115/80 98.8 Status: improved Disposition: XFER SNF Condition: Stable Scripts Levofloxacin* (LEVAQUIN*) 500 Mg Tablet 500 MG ORAL DAILY, #7 TAB Prov: Brandon Randhawa MD 01/16/18 Referrals: DELFINA KINCAID (PCP) Additional Instructions: Follow-up with your doctor in 7 days. Return if symptom worsen. Check blood sugar regularly. Brandon Randhawa MD Jan 16, 2018 02:06
[2018-01-16] MEDS ORDERED: KEPPRA500 M4 ORAL (02:36)
[2018-01-16] MEDS ORDERED: LANTUS SOL100 UNIT/1 SUBQ (02:36)
[2018-01-16] MEDS ORDERED: COREG6.25 MG ORAL (02:36)
[2018-01-16] MEDS ORDERED: ZINC SULFATE220 M2 ORAL (02:36)
[2018-01-16] MEDS ORDERED: MAGNESIUM OXID400 M1 ORAL (02:36)
[2018-01-16] MEDS ORDERED: HYDROCHLOROTHIA25 MG ORAL (02:36)
[2018-01-16] MEDS ORDERED: PRAVASTATIN SOD40 M1 ORAL (02:36)
[2018-01-16] MEDS ORDERED: PRO-STAT LIQUID30 ML ORAL (02:36)
[2018-01-16] MEDS ORDERED: ZOFRAN4 MG ORAL (02:36)
[2018-01-16] MEDS ORDERED: TAMSULOSIN HCL0.4 MG ORAL (02:36)
[2018-01-16] MEDS ORDERED: VITAMIN C500 M1 ORAL (02:36)
[2018-01-16 03:02] LABS: BASOPHILS % (AUTO) 0.8 % (0.0-2.0); EOSINOPHILS % (AUTO) 0.6 % (0.0-3.0); HEMATOCRIT 40.2 % (42.0-52.0); LYMPHOCYTES % (AUTO) 11.8 % (20.0-45.0); MEAN CORPUSCULAR VOLUME 83 FL (80-99); NEUTROPHILS % (AUTO) 80.9 % (45.0-75.0); PLATELET COUNT 370 K/UL (150-450); RED BLOOD COUNT 4.84 M/UL (4.70-6.10); RED CELL DISTRIBUTION WIDTH 12.4 % (11.6-14.8)
[2018-01-16 03:20] LABS: ANION GAP 10 mmol/L (5-15); BLOOD UREA NITROGEN 44 mg/dL (7-18); CALCIUM 9.5 MG/DL (8.5-10.1); CARBON DIOXIDE 28 MMOL/L (21-32); CHLORIDE 97 MMOL/L (98-107); CREATININE 1.9 MG/DL (0.55-1.30); POTASSIUM 3.3 MMOL/L (3.5-5.1); SODIUM 135 MMOL/L (136-145)
[2018-01-16 03:23] LABS: BILIRUBIN, URINE NEGATIVE (NEGATIVE); COLOR,URINE PALE YELLOW; GLUCOSE, URINE (UA) 4+ (NEGATIVE); KETONES,URINE NEGATIVE (NEGATIVE); LEUKOCYTE ESTERASE ,URINE 3+ (NEGATIVE); NITRITE,URINE NEGATIVE (NEGATIVE); PH,URINE 6 (4.5-8.0); PROTEIN,URINE 3+ (NEGATIVE); UROBILINOGEN,URINE NORMAL MG/DL (0.0-1.0)
[2018-01-16 03:34] LABS: ALANINE AMINOTRANSFERASE 52 U/L (12-78); ALBUMIN/GLOBULIN RATIO 0.6 (1.0-2.7); ALKALINE PHOSPHATASE 113 U/L (46-116); ASPARTATE AMINO TRANSFERASE 39 U/L (15-37); BILIRUBIN,TOTAL 0.7 MG/DL (0.2-1.0); CKMB 1.1 NG/ML (0.0-3.6); CREATINE KINASE 51 U/L (26-308)
[2018-01-16 03:37] LABS: APPEARANCE,URINE CLOUDY
[2018-01-16] MEDS ORDERED: LEVAQUIN500 MG ORAL (03:44)
[2018-01-16] MEDS ORDERED: cefTRIAXone 1 GM in NS 55 ML IVPB ONE (03:45)
[2018-01-16 04:40] VITALS: BP 113/82
--- NOTE | 2018-01-16 10:22 | Diagnostic Imaging Report ---
Indication: Shortness of breath Technique: One view of the chest Comparison: 03/30/2018 Findings: Surgical clips project over the right chest. Lungs and pleural spaces are clear. Heart size is normal. No significant interim change Impression: No acute process
--- NOTE | 2018-01-19 14:50 | Cardiology Report ---
APPROVED REPORT EKG Measurement Heart [id number] PA 140P86 [id number] Multifocal atrial rhythm Inferior infarct, age undetermined Abnormal ECG
== END 2018-01-16 04:40 ==
LOC: EDBD 01:26 → EDUNIT# 01:26 → EMR 01:42
DX: E16.2 Hypoglycemia, unspecified (principal); E86.0 Dehydration; J44.1 Chronic obstructive pulmonary disease with (acute) exacerbation; N39.0 Urinary tract infection, site not specified; N17.9 Acute kidney failure, unspecified; F03.90 Unspecified dementia, unspecified severity, without behavioral disturbance, psychotic disturbance, mood disturbance, and anxiety; I10 Essential (primary) hypertension; E11.9 Type 2 diabetes mellitus without complications; Z88.0 Allergy status to penicillin; Z79.4 Long term (current) use of insulin
CPT/HCPCS: 36415; 71045; 80053; 81003; 82550; 82553; 82962; 83605; 84484; 85025; 85610; 85730; 87040; 87086; 93005; 94640; 94664; 96365; 96375; 99284; J0696